=== PATIENT | male | born 1935 | race Caucasian/White ===

== ENCOUNTER → 2017-04-21 | Outpatient (CLI) | payer OTHER ==
--- NOTE | 2017-04-21 12:02 | RAD ---
Indication follow-up subdural hematoma. Noncontrast images of the head were obtained. Comparison is made to the most recent examination available August 24, 2006. The calvarium appears unremarkable. The visualized paranasal sinuses appear normal. There are bilateral small subdural hematomas. The right subdural hematoma has a chronic appearance. There is slightly increased density associated with the left subdural hematoma compatible with early chronic subdural hematoma. Maximum thickness on the right is approximately 1.3 cm and on the left 1.2. There is no midline shift. There is a tiny focus of increased density associated with a left frontal lobe gyrus. While this could be incidental a tiny focus of cortical hemorrhage is not excluded. No parenchymal mass is seen. The ventricles and sulci are within normal limits given the patient's age. IMPRESSION: Bilateral subdural hematomas as outlined above. The right subdural hematoma has a chronic appearance. 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 PQRS Compliance Statement: One or more of the following individualized dose reduction techniques were utilized for this examination: 1. Automated exposure control 2. Adjustment of the mA and/or kV according to patient size 3. Use of iterative reconstruction technique After multiple attempts on April 21, 2017 to fax the report to Dr. Navarro's office, his staff, [place] to fax a copy of the report to Dr. Manny Newton's office. Successful fax of the report to Dr. Newton's office was confirmed by Dr. Lamar Michael's PA on 04-21-17 @ 11:07am.
== END | disposition home or self-care (01) ==
LOC: CT 08:14
PROVIDERS: ATTEND Internal Medicine
DX: S06.5X9D Traumatic subdural hemorrhage with loss of consciousness of unspecified duration, subsequent encounter (principal); R42 Dizziness and giddiness; X58.XXXD Exposure to other specified factors, subsequent encounter
CPT/HCPCS: 70450

== ENCOUNTER → 2017-05-19 | Outpatient (CLI) | payer OTHER ==
--- NOTE | 2017-05-19 15:29 | RAD ---
Indication follow-up subdural hematoma. Noncontrast images of the head were obtained and are compared to an exam 04/21/2017. The calvarium appears unremarkable and the visualized paranasal sinuses appear normal left subdural hematoma is noted. There is, however, increased density associated with the left subdural indicative of some interval bleeding relative to the previous exam maximum thickness is approximately 1.5 cm. Corresponding measurement on the previous examination was approximately 1.1 cm no appreciable right subdural hematoma is seen on today's exam. A parenchymal finding is not seen. There is no midline shift. IMPRESSION: Slight increase in size of left subdural hematoma. There is, additionally, increased density seen in the subdural relative to the previous exam indicative of some interval bleeding into the subdural space A preliminary copy of this report was faxed to Dr. Mcintyre's office on 05-19-17 at 12:14 pm CDT by Leslee Bowling. At 13:15 on 05-19-17, [employer] [place], confirmed the report had been received and will present it to Dr. Mcintyre. PQRS Compliance Statement: One or more of the following individualized dose reduction techniques were utilized for this examination: 1. Automated exposure control 2. Adjustment of the mA and/or kV according to patient size 3. Use of iterative reconstruction technique
== END | disposition home or self-care (01) ==
LOC: CT 12:56
PROVIDERS: ATTEND Neurological Surgery
DX: I62.00 Nontraumatic subdural hemorrhage, unspecified (principal)
CPT/HCPCS: 70450

== ENCOUNTER → 2017-05-29 | Outpatient (CLI) | payer OTHER ==
--- NOTE | 2017-05-29 10:58 | KCIC ---
Examination: CT head without contrast HISTORY: History of follow-up subdural bleed COMPARISON: None TECHNIQUE: Axial CT images of the head was performed without contrast. Exposure: One or more of the following individualized dose reduction techniques were utilized for this examination: 1. Automated exposure control 2. Adjustment of the mA and/or kV according to patient size 3. Use of iterative reconstruction technique FINDINGS: There is 3 mm [id number] midline shift. There is subdural fluid collection identified in the left frontoparietal region measuring 2.5 cm in transverse greatest transverse dimension. This fluid collection is mixed density with some hypodensity in the inferior aspect of the fluid collection. The visualized lateral ventricles, third ventricle, fourth ventricle appropriate for age. The basal cisterns are uneffaced The visualized paranasal sinuses, mastoid air cells are clear. IMPRESSION: Left frontoparietal subdural mixed density bleed probably acute on chronic measuring 2.5 cm is greatest transverse dimension. No comparison is available at this time. Comparison to prior exam is recommended if available. There is minimal 3 mm [id number] midline shift. Electronically signed by: Minesh Bender MD (05/29/2017 10:55 AM) [id number]
== END | disposition home or self-care (01) ==
LOC: KCIC CT 10:14
PROVIDERS: ATTEND Neurological Surgery
DX: I62.00 Nontraumatic subdural hemorrhage, unspecified (principal)
CPT/HCPCS: 70450

== ENCOUNTER → 2017-07-02 | Outpatient (CLI) | payer OTHER ==
[~2017-07-02] MED LIST: AMLO5TAB2 PO; ATOR10TA60 PO; FINA5TAB4 PO; GLIP5TAB10 PO; HYDR25TA9 PO; METF1000 PO; METO25TA4 PO; MULT1TAB90 PO; OMEP20TA63 PO; PANT40TA5 PO; PIOG15TA42 PO; TAMS0.4C97 PO; TIMOLOL 0.25% OU
--- NOTE | 2017-07-02 10:48 | KCIC ---
CT HEAD WO CONTRAST History: Subdural follow-up Comparison: June 11, 2017 Technique: Noncontrast CT imaging was performed of the head. Exposure: One or more of the following individualized dose reduction techniques were utilized for this examination: 1. Automated exposure control 2. Adjustment of the mA and/or kV according to patient size 3. Use of iterative reconstruction technique. Findings: There is persistent left convexity subdural hematoma with internal heterogeneous density characteristics. This in greatest transverse dimension measures up to 1.5 cm which is overall smaller as previously 2.3 cm. There is some patchy internal mild hyperdensity. Ventricular size is stable. There is mild left to right midline shift up to 0.3 cm, slightly decreased. Campbell-white differentiation of the major vascular territories is preserved. Paranasal sinuses and mastoid air cells are aerated. Impression: 1. There is persistent although somewhat smaller left lateral convexity subdural hematoma, slightly decreased left to right midline shift. Electronically signed by: Jaron Sheikh MD (07/02/2017 10:44 AM) [email or web address]
== END | disposition home or self-care (01) ==
LOC: KCIC CT 10:02
PROVIDERS: ATTEND Neurological Surgery
DX: I62.00 Nontraumatic subdural hemorrhage, unspecified (principal)
CPT/HCPCS: 70450

== ENCOUNTER → 2017-09-02 | Outpatient (CLI) | payer OTHER | END | disposition home or self-care (01) | LOC: KCIC CT 10:35 | DX: I62.00 Nontraumatic subdural hemorrhage, unspecified (principal) | CPT/HCPCS: 70450 ==

== ENCOUNTER → 2018-08-13 | Outpatient (CLI) | payer OTHER ==
[2017-12-03 11:00] VITALS: BP 111/59
[~2018-08-13] MED LIST changes: -AMLO5TAB2 PO; +AMLO5TAB7 PO; +HYDR-2145 PO; -HYDR25TA9 PO
--- NOTE | 2018-08-13 15:04 | KCIC ---
CT HEAD WO CONTRAST History: History of subdural hematoma Comparison: November 26, 2017. Technique: Noncontrast CT imaging was performed of the head. Exposure: One or more of the following individualized dose reduction techniques were utilized for this examination: 1. Automated exposure control 2. Adjustment of the mA and/or kV according to patient size 3. Use of iterative reconstruction technique. Findings: There is persistent chronic left convexity subdural hematoma in greatest thickness about 3 mm, fairly similar in size. There could be a trace right frontal region subdural hematoma difficult to characterize about 1 to 2 mm in greatest thickness, not significantly hyperdense, somewhat more apparent on this exam than previous exam. There is no new midline shift or acute parenchymal hemorrhage. Ventricular size is stable. There is mild generalized supratentorial involutional change. Visualized paranasal sinuses and mastoid air cells are aerated. 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 Impression: 1. There is residual thin left convexity chronic subdural hematoma and questionable tiny chronic right frontal region subdural hematoma. Electronically signed by: Jaron Sheikh MD (08/13/2018 3:00 PM) [facility]
== END | disposition home or self-care (01) ==
LOC: KCIC CT 14:11
PROVIDERS: ATTEND Internal Medicine Cardiovascular Disease
DX: I62.03 Nontraumatic chronic subdural hemorrhage (principal)
CPT/HCPCS: 70450

== ENCOUNTER → 2020-02-07 | Outpatient (CLI) | payer OTHER ==
[2017-12-03 11:00] VITALS: BP 111/59
[~2020-02-07] MED LIST changes: +AMLO5TAB10 PO; -AMLO5TAB7 PO; -PANT40TA5 PO; +PANT40TA77 PO
--- NOTE | 2020-02-07 11:43 | CARD ---
MR#: [id number] Date of Study: 02/07/2020 Ordering Physician: ANDRE RILEY, Referring Physician: ANDRE RILEY, Tech: Kourtney Johnson APPROVED REPORT EXAM: Two-dimensional and M-mode echocardiogram with Doppler and color Doppler. Other Information Quality : AverageHR: 56bpm Technically limited study due to body habitus. INDICATION Dyspnea RISK FACTORS Hypertension Hyperlipidemia Diabetes 2D DIMENSIONS Left Atrium(2D)5.0 (1.6-4.0cm)IVSd1.6 (0.7-1.1cm) Aortic Root(2D)3.4 (2.0-3.7cm)LVDd5.2 (3.9-5.9cm) LVOT Diameter2.2 (1.8-2.4cm)PWd1.1 (0.7-1.1cm) LVDs3.2 (2.5-4.0cm)FS (%) 39.0 % SV90.9 ml Aortic Valve AoV Peak Ashvin.110.0cm/sAoV VTI23.7cm AO Peak GR.4.8mmHgLVOT Peak Ashvin.87.3cm/s LVOT VTI 20.11cmAO Mean GR.3mmHg KANA (VMAX)2.18ft4OVG (VTI)3.24cm2 Mitral Valve MV E Asjzibfi419.6cm/sMV DECEL [id number] MV A Ijvbxqii70.3cm/sMV E Mean Gr.3mmHg MV [id number]/A Ratio2.2 MVA (PHT)3.38cm2 TDI E/Lateral E'15.8E/Medial E'17.3 Pulmonary Valve PV Peak Tscbphzi63.0cm/sPV Peak Grad.3mmHg Tricuspid Valve TR P. Iovbizml393ky/sRAP [id number] TR Peak Gr.77gfHnFUPR48cgLf LEFT VENTRICLE The left ventricle is normal size. There is mild concentric left ventricular hypertrophy. The left ve ntricular systolic function is normal and the ejection fraction is within normal range. The Ejection Fraction is 50-55%. There is normal LV segmental wall motion. The left ventricular diastolic function and filling is normal for age. RIGHT VENTRICLE The right ventricle is normal size. There is normal right ventricular wall thickness. The right ventr icular systolic function is normal. ATRIA The left atrium is borderline dilated. The right atrium is mildly dilated. The interatrial septum is intact with no evidence for an atrial septal defect or patent foramen ovale as noted on 2-D or Dopple r imaging. AORTIC VALVE The aortic valve is normal in structure and function. Doppler and Color Flow revealed trace aortic re gurgitation. There is no significant aortic valvular stenosis. MITRAL VALVE The mitral valve is normal in structure and function. There is no evidence of mitral valve prolapse. There is no mitral valve stenosis with a mean gradient of 2.7 mmHg. Doppler and Color-flow revealed t race mitral regurgitation. TRICUSPID VALVE The tricuspid valve is normal in structure and function. Doppler and Color Flow revealed trace tricus pid regurgitation with an estimated PAP of 41 mmHg. There is no tricuspid valve stenosis. PULMONIC VALVE The pulmonic valve is not well visualized. Doppler and Color Flow revealed trace pulmonic valvular re gurgitation. GREAT VESSELS The aortic root is normal in size. The ascending aorta is borderline dilated. The IVC is dilated. PERICARDIAL EFFUSION There is no evidence of significant pericardial effusion. Critical Notification Critical Value: No <Conclusion> The left ventricle is normal size. The left ventricular systolic function is normal and the ejection fraction is within normal range. The Ejection Fraction is 50-55%. There is mild concentric left ventricular hypertrophy. Doppler and Color Flow revealed trace aortic regurgitation. There is no significant aortic valvular stenosis. Doppler and Color-flow revealed trace mitral regurgitation. Doppler and Color Flow revealed trace tricuspid regurgitation with an estimated PAP of 41 mmHg. Signed by : Andre Riley MD Electronically Approved : 02/07/2020 11:42:25
--- NOTE | 2020-02-07 15:45 | RAD ---
MR#: [id number] Date of Study: 02/07/2020 Ordering Physician: ANDRE CERON, Referring Physician: ANDRE CERON, Tech: Darin Yost MBA, RDMS, RVT, RDCS, RTR APPROVED REPORT Bilateral Lower Extremity Venous Study for DVT Patient Location: OUT-PATIENT Indications Lower Extremity Edema: Bilateral Vein Imaging (Right) CFV (R): Compressible SFJ (R): Compressible FEM (R): Compressible POP (R): Compressible DFV (R): Compressible PTV (R): Spontaneous GSV (R): Spontaneous Peroneals (R): Spontaneous Vein Imaging (Left) CFV (L): Compressible SFJ (L): Compressible FEM (L): Compressible POP (L): Compressible DFV (L): Compressible PTV (L): Spontaneous GSV (L): Spontaneous Peroneals (L): Spontaneous Doppler Evaluation (Right) CFV (R): Spontaneous POP (R):Spontaneous Doppler Evaluation (Left) CFV (L):Spontaneous POP (L):Spontaneous Findings Grayscale images of the bilateral common femoral, superficial femoral and popliteal veins demonstrate no obvious evidence of thrombus with normal compressibility. There is normal spectral Doppler and c olor flow noted. Below the knee the veins were not well visualized due to body habitus. Critical Notification Critical Value: No <Conclusion> 1. Technically difficult study, below-knee veins not well visualized but above the knee veins from t he common femoral to the popliteal segment did not reveal any evidence of thrombus Signed by : Shiva Brown, Electronically Approved : 02/07/2020 15:45:25
== END | disposition home or self-care (01) ==
LOC: ECHO 09:41
PROVIDERS: ATTEND Internal Medicine Cardiovascular Disease
DX: I51.7 Cardiomegaly (principal); M79.89 Other specified soft tissue disorders; E78.9 Disorder of lipoprotein metabolism, unspecified; E11.8 Type 2 diabetes mellitus with unspecified complications
CPT/HCPCS: 93306; 93970